=== PATIENT | male | born 1980 | race Asian ===

== ENCOUNTER 2021-10-22 15:10 | Inpatient (IN) | payer OTHER, SELFPAY ==
[2021-10-22 15:32] LABS: #Basophils 0.1 10x3/uL (0.0-0.2); #Monocytes 1.1 10x3/uL (0.0-1.1); #Neutrophils 10.2 10x3/uL (1.5-8.4); %Basophils 0.6 % (0.0-2.0); %Eosinophils 0.2 % (0.0-6.0); %Lymphocytes 11.2 % (18.0-47.0); %Monocytes 8.1 % (0.0-10.0); %Neutrophils 79.4 % (40.0-75.0); Hemoglobin 13.2 g/dL (13.5-17.5); Mean Corpuscular HGB CONC 34.4 g/dL (32.0-36.0); Mean Corpuscular Hemoglobin 35.9 pg (27.0-33.0); Mean Corpuscular Volume 104.3 fl (81.2-95.1); Mean Platelet Volume 10.9 fl (7.4-10.4); Platelet Count 161 10x3/uL (150-450); RBC Distribution Width 11.9 % (11.5-14.5); Red Blood Cell (RBC) Count 3.68 10x6/uL (4.32-5.72); White Blood Cell (WBC) Count 12.9 10x3/uL (3.5-10.5)
[2021-10-22] MEDS ORDERED: Multivitamins, Adult 10 ML, Folic Acid 1 MG in Dextrose 5 %-0.45 % NaCl 1,000 ML IV SCH (16:00)
[2021-10-22 16:04] LABS: Bilirubin Neg (Negative); Blood, Urine 25 (Negative); Clarity Cloudy (Clear); Glucose, Urine (Dipstick) 50 mg/dL (Negative); Ketone, Urine 5 mg/dL (Negative); Leukocyte 25 (Negative); Nitrite Negative (Negative); Protein, Urine (Dipstick) 100 mg/dl (Neg-Trace); Urobilinogen Normal mg/dL (Less than 2)
[2021-10-22 16:07] LABS: ALT (SGPT) 50 U/L (8-55); AST (SGOT) 98 U/L (5-34); Acetaminophen Less than 6.0 mcg/mL (10.0-30.0); Albumin 4.5 g/dL (3.5-5.0); Alcohol Less than 10 mg/dL (Less than 10); Alkaline Phosphatase 83 U/L (40-110); Anion Gap 16 mmol/L (10-20); BUN (Urea Nitrogen) 12 mg/dL (8.9-20.6); Bilirubin, Total 1.2 mg/dL (0.2-1.2); CK (CPK) 616 U/L (30-200); Calc. Creatinine Clearance 0 mL/min (70-130); Calcium 9.4 mg/dL (7.8-10.44); Carbon Dioxide 24 mmol/L (22-29); Chloride 99 mmol/L (98-107); Globulin 3.4 g/dL (2.4-3.5); Glucose 131 mg/dL (70-105); Magnesium 2.2 mg/dL (1.6-2.6); Potassium 4.3 mmol/L (3.5-5.1); Protein, Total 7.9 g/dL (6.0-8.3); Salicylate Less than 8.0 mg/dL (15.0-30.0); Sodium 135 mmol/L (136-145)
[2021-10-22] MEDS ORDERED: Lorazepam 2 MG/ML VIAL ONE (16:08)
[2021-10-22] MEDS ORDERED: Magnesium 2 GM/50 ML BAG (IN WATER) ONE (16:08)
[2021-10-22] MEDS ORDERED: Thiamine HCl 200 MG/2 ML VIAL ONE (16:08)
[2021-10-22 16:11] LABS: Amphetamine Not Detected (NotDetected); Barbiturates Screen Not Detected (NotDetected); Benzodiazepine Screen Not Detected (NotDetected); Cocaine Metabolite Screen Not Detected (NotDetected); Methadone Not Detected (NotDetected); Methamphetamine Not Detected (NotDetected); Opiate Screen Not Detected (NotDetected); Oxycodone Screen Not Detected (NotDetected); Phencyclidine (PCP) Not Detected (NotDetected); THC/Cannabinoid Screen Not Detected (NotDetected); Tricyclic Screen Not Detected (NotDetected)
[2021-10-22 16:25] LABS: Bacteria/HPF Rare-Few HPF (None Seen); Squamous Epithelial 0-3 HPF (0-3)
[2021-10-22] MEDS ORDERED: Lorazepam 2 MG/ML VIAL IM PRN (18:58)
[2021-10-22] MEDS ORDERED: Lorazepam 1 MG TAB PO PRN (18:58)
[2021-10-22] MEDS ORDERED: Ondansetron ODT 4 MG TAB PO PRN (18:58)
[2021-10-22] MEDS ORDERED: Electrolyte Replacement Protocol 1 EACH FS SCH (19:00)
[2021-10-22 19:21] LABS: #Basophils 0.1 10x3/uL (0.0-0.2); #Monocytes 0.7 10x3/uL (0.0-1.1); #Neutrophils 9.1 10x3/uL (1.5-8.4); %Basophils 0.5 % (0.0-2.0); %Eosinophils 0.2 % (0.0-6.0); %Monocytes 6.7 % (0.0-10.0); %Neutrophils 83.2 % (40.0-75.0); Hemoglobin 12.9 g/dL (13.5-17.5); Mean Corpuscular HGB CONC 34.9 g/dL (32.0-36.0); Mean Corpuscular Hemoglobin 36.2 pg (27.0-33.0); Mean Corpuscular Volume 103.9 fl (81.2-95.1); Mean Platelet Volume 9.4 fl (7.4-10.4); Platelet Count 117 10x3/uL (150-450); RBC Distribution Width 11.8 % (11.5-14.5); Red Blood Cell (RBC) Count 3.56 10x6/uL (4.32-5.72); White Blood Cell (WBC) Count 10.9 10x3/uL (3.5-10.5)
[2021-10-22 19:35] LABS: ALT (SGPT) 47 U/L (8-55); AST (SGOT) 87 U/L (5-34); Albumin 4.2 g/dL (3.5-5.0); Alkaline Phosphatase 77 U/L (40-110); Anion Gap 12 mmol/L (10-20); BUN (Urea Nitrogen) 10 mg/dL (8.9-20.6); Bilirubin, Direct 0.5 mg/dL (0.1-0.3); Bilirubin, Total 1.2 mg/dL (0.2-1.2); Calc. Creatinine Clearance 0 mL/min (70-130); Calcium 8.7 mg/dL (7.8-10.44); Carbon Dioxide 23 mmol/L (22-29); Chloride 101 mmol/L (98-107); Globulin 3.3 g/dL (2.4-3.5); Glucose 133 mg/dL (70-105); Magnesium 2.6 mg/dL (1.6-2.6); Phosphorus 2.3 mg/dL (2.3-4.7); Potassium 3.4 mmol/L (3.5-5.1); Protein, Total 7.5 g/dL (6.0-8.3); Sodium 133 mmol/L (136-145)
[2021-10-22 19:54] LABS: Syphilis Antibody Nonreactive (Nonreactive); Syphilis Antibody Index 0.06 S/CO (<1.00 Non-Reactive)
[2021-10-22] MEDS ORDERED: Acetaminophen 325 MG TAB PO PRN (19:58)
[2021-10-22] MEDS ORDERED: Acetaminophen 325 MG TAB ONE (21:19)
[2021-10-22 22:35] VITALS: BMI 22.1
[2021-10-22] MEDS: Lorazepam 1 MG TAB PO SCH (22:59)
[2021-10-22] MEDS ORDERED: Potassium Bicarbonate/Cit Ac 20 MEQ TAB PO SCH (23:15)
[2021-10-22] MEDS: Lactated Ringer's 1,000 ML IV SCH (23:31)
[2021-10-23 01:21] LABS: SARS-CoV-2 NAA Rapid Test Not Detected (NotDetected)
[2021-10-23] MEDS: Lorazepam 1 MG TAB PO SCH ×4 (02:13→19:36)
[2021-10-23 05:07] LABS: Anion Gap 13 mmol/L (10-20); BUN (Urea Nitrogen) 8 mg/dL (8.9-20.6); Calc. Creatinine Clearance 123 mL/min (70-130); Calcium 8.6 mg/dL (7.8-10.44); Carbon Dioxide 24 mmol/L (22-29); Chloride 105 mmol/L (98-107); Glucose 95 mg/dL (70-105); Potassium 3.5 mmol/L (3.5-5.1); Sodium 138 mmol/L (136-145)
[2021-10-23 05:20] LABS: #Basophils 0.1 10x3/uL (0.0-0.2); #Eosinphils 0.1 10x3/uL (0.0-0.5); #Monocytes 0.6 10x3/uL (0.0-1.1); %Basophils 0.6 % (0.0-2.0); %Eosinophils 0.9 % (0.0-6.0); %Lymphocytes 14.1 % (18.0-47.0); %Monocytes 7.6 % (0.0-10.0); %Neutrophils 76.5 % (40.0-75.0); Hemoglobin 12.5 g/dL (13.5-17.5); Mean Corpuscular HGB CONC 34.2 g/dL (32.0-36.0); Mean Corpuscular Hemoglobin 35.8 pg (27.0-33.0); Mean Corpuscular Volume 104.6 fl (81.2-95.1); Mean Platelet Volume 10.6 fl (7.4-10.4); Platelet Count 124 10x3/uL (150-450); RBC Distribution Width 12.1 % (11.5-14.5); Red Blood Cell (RBC) Count 3.49 10x6/uL (4.32-5.72); White Blood Cell (WBC) Count 7.8 10x3/uL (3.5-10.5)
[2021-10-23] MEDS ORDERED: Potassium Chloride 20 MEQ TAB PO SCH (05:30)
[2021-10-23] MEDS: Lactated Ringer's 1,000 ML IV SCH (06:03)
[2021-10-23] MEDS: Enoxaparin Sodium 40 MG/0.4 ML SYRINGE SC SCH (10:10)
[2021-10-23] MEDS: Folic Acid 1 MG TAB PO SCH (10:10)
[2021-10-23] MEDS: Multivit, Therapeutic 1 TAB PO SCH (10:10)
[2021-10-23 12:06] LABS: Potassium 3.8 mmol/L (3.5-5.1)
[2021-10-23] MEDS: Thiamine HCl 200 MG/2 ML VIAL SLOW IVP SCH (16:26)
[2021-10-23] MEDS ORDERED: Lorazepam 1 MG TAB PO PRN (18:58)
[2021-10-24] MEDS: Lorazepam 1 MG TAB PO SCH ×3 (02:55→13:05)
[2021-10-24 05:51] LABS: Anion Gap 14 mmol/L (10-20); BUN (Urea Nitrogen) 5 mg/dL (8.9-20.6); Calc. Creatinine Clearance 142 mL/min (70-130); Carbon Dioxide 22 mmol/L (22-29); Chloride 106 mmol/L (98-107); Glucose 99 mg/dL (70-105); Potassium 3.5 mmol/L (3.5-5.1); Sodium 138 mmol/L (136-145)
[2021-10-24 05:59] LABS: #Eosinphils 0.1 10x3/uL (0.0-0.5); #Monocytes 0.7 10x3/uL (0.0-1.1); %Basophils 0.6 % (0.0-2.0); %Eosinophils 1.8 % (0.0-6.0); %Lymphocytes 13.3 % (18.0-47.0); %Monocytes 10.4 % (0.0-10.0); %Neutrophils 73.6 % (40.0-75.0); Hemoglobin 13.1 g/dL (13.5-17.5); Mean Corpuscular HGB CONC 34.5 g/dL (32.0-36.0); Mean Corpuscular Hemoglobin 36.6 pg (27.0-33.0); Mean Corpuscular Volume 106.1 fl (81.2-95.1); Mean Platelet Volume 9.7 fl (7.4-10.4); RBC Distribution Width 11.9 % (11.5-14.5); Red Blood Cell (RBC) Count 3.58 10x6/uL (4.32-5.72); White Blood Cell (WBC) Count 6.8 10x3/uL (3.5-10.5)
[2021-10-24 06:00] LABS: Platelet Count 138 10x3/uL (150-450)
[2021-10-24 07:16] LABS: Macrocytosis SLIGHT = 6-15 cells (100X) (0-5/hpf)
[2021-10-24 07:17] LABS: Platelet Morphology Comment Appears Decreased
[2021-10-24] MEDS ORDERED: Potassium Chloride 20 MEQ TAB PO SCH (08:00)
[2021-10-24] MEDS ORDERED: Potassium Bicarbonate/Cit Ac 20 MEQ TAB PO SCH (09:00)
[2021-10-24] MEDS: Multivit, Therapeutic 1 TAB PO SCH (09:22)
[2021-10-24] MEDS: Enoxaparin Sodium 40 MG/0.4 ML SYRINGE SC SCH (09:22)
[2021-10-24] MEDS: Folic Acid 1 MG TAB PO SCH (09:22)
[2021-10-24 13:43] LABS: Potassium 4.6 mmol/L (3.5-5.1)
[2021-10-24] MEDS: Thiamine HCl 200 MG/2 ML VIAL SLOW IVP SCH (15:49)
[2021-10-24] MEDS ORDERED: Lorazepam 1 MG TAB PO PRN (18:58)
[2021-10-24] MEDS: Lorazepam 0.5 MG TAB PO SCH (19:39)
[2021-10-25] MEDS: Lorazepam 0.5 MG TAB PO SCH ×2 (01:28→09:07)
[2021-10-25 04:08] LABS: #Basophils 0.1 10x3/uL (0.0-0.2); #Eosinphils 0.2 10x3/uL (0.0-0.5); #Monocytes 0.8 10x3/uL (0.0-1.1); #Neutrophils 4.2 10x3/uL (1.5-8.4); %Basophils 0.8 % (0.0-2.0); %Eosinophils 2.3 % (0.0-6.0); %Lymphocytes 19.9 % (18.0-47.0); %Monocytes 12.8 % (0.0-10.0); %Neutrophils 63.6 % (40.0-75.0); Hemoglobin 13.3 g/dL (13.5-17.5); Mean Corpuscular HGB CONC 34.3 g/dL (32.0-36.0); Mean Corpuscular Hemoglobin 36.3 pg (27.0-33.0); Mean Platelet Volume 9.2 fl (7.4-10.4); Platelet Count 153 10x3/uL (150-450); RBC Distribution Width 11.8 % (11.5-14.5); Red Blood Cell (RBC) Count 3.66 10x6/uL (4.32-5.72); White Blood Cell (WBC) Count 6.6 10x3/uL (3.5-10.5)
[2021-10-25 04:19] LABS: Anion Gap 13 mmol/L (10-20); BUN (Urea Nitrogen) 9 mg/dL (8.9-20.6); Calc. Creatinine Clearance 117 mL/min (70-130); Calcium 9.3 mg/dL (7.8-10.44); Carbon Dioxide 26 mmol/L (22-29); Chloride 103 mmol/L (98-107); Glucose 102 mg/dL (70-105); Sodium 138 mmol/L (136-145)
[2021-10-25 04:40] LABS: RBC Morphology Normal
[2021-10-25] MEDS: Folic Acid 1 MG TAB PO SCH (09:06)
[2021-10-25] MEDS: Enoxaparin Sodium 40 MG/0.4 ML SYRINGE SC SCH (09:06)
[2021-10-25] MEDS: Multivit, Therapeutic 1 TAB PO SCH (09:06)
[2021-10-25] MEDS: Thiamine HCl 200 MG/2 ML VIAL SLOW IVP SCH (16:15)
[2021-10-25] MEDS ORDERED: Lorazepam 0.5 MG TAB PO PRN (18:58)
[2021-10-26 08:36] VITALS: BP 133/84; TEMP 98.1
[2021-10-26] MEDS: Enoxaparin Sodium 40 MG/0.4 ML SYRINGE SC SCH (08:46)
[2021-10-26] MEDS: Multivit, Therapeutic 1 TAB PO SCH (08:46)
[2021-10-26] MEDS: Folic Acid 1 MG TAB PO SCH (08:46)
[2021-10-26] MEDS ORDERED: Thiamine 100 MG TAB PO SCH (16:00)
== END 2021-10-26 10:40 | disposition home or self-care (01) | DRG 897 ==
LOC: CSHERS 15:10 → SUATTDRO 15:10 → CSHTELE 15:11 → UNDOADMIN 15:11 → CSHTELE 17:08
PROVIDERS: ADMIT Student in an Organized Health Care Education/Training Program; ATTEND Hospitalist
DX: F10.239 Alcohol dependence with withdrawal, unspecified (principal); G40.509 Epileptic seizures related to external causes, not intractable, without status epilepticus; D53.9 Nutritional anemia, unspecified; Z20.822 Contact with and (suspected) exposure to COVID-19
CPT/HCPCS: 0240U; 36415; 70450; 71045; 72125; 80048; 80053; 80306; 80307; 81003; 81015; 82248; 82550; 82607; 82746; 83735; 84100; 85025; 86780; 93005; 94760; 96365; 96366; 96375; J1650; J2060; J3411; J3475; J7042; J7120

== ENCOUNTER 2022-05-15 20:29 | Emergency (ER) | payer OTHER ==
[~2022-05-15 20:29] MED LIST: Iopamidol 300 61% 100 ML VIAL FS ONE
[2022-05-15 22:55] LABS: Hemoglobin 14.5 g/dL (13.5-17.5); MDiff Complete? YES; Mean Corpuscular HGB CONC 36.1 g/dL (32.0-36.0); Mean Corpuscular Volume 99.8 fl (81.2-95.1); Mean Platelet Volume 9.7 fl (7.4-10.4); Platelet Count 104 10x3/uL (150-450); RBC Distribution Width 12.7 % (11.5-14.5); Red Blood Cell (RBC) Count 4.03 10x6/uL (4.32-5.72); White Blood Cell (WBC) Count 3.2 10x3/uL (3.5-10.5)
[2022-05-15 23:03] LABS: Acetaminophen Less than 10.0 mcg/mL (10.0-30.0); Alcohol 256 mg/dL (Less than 10); Salicylate Less than 8.0 mg/dL (15.0-30.0)
[2022-05-15 23:04] LABS: ALT (SGPT) 107 U/L (8-55); AST (SGOT) 471 U/L (5-34); Albumin 4.4 g/dL (3.5-5.0); Alkaline Phosphatase 128 U/L (40-110); Anion Gap 19 mmol/L (10-20); BUN (Urea Nitrogen) 8 mg/dL (8.9-20.6); Bilirubin, Total 0.8 mg/dL (0.2-1.2); Calc. Creatinine Clearance 0 mL/min (70-130); Calcium 8.9 mg/dL (7.8-10.44); Carbon Dioxide 24 mmol/L (22-29); Chloride 97 mmol/L (98-107); Globulin 3.7 g/dL (2.4-3.5); Glucose 75 mg/dL (70-105); Lipase 47 U/L (8-78); Potassium 3.8 mmol/L (3.5-5.1); Protein, Total 8.1 g/dL (6.0-8.3); Sodium 136 mmol/L (136-145)
[2022-05-15] MEDS ORDERED: Pantoprazole 40 MG VIAL ONE (23:05)
[2022-05-15] MEDS ORDERED: Fentanyl 100 MCG/2 ML VIAL ONE (23:05)
[2022-05-15] MEDS ORDERED: Ondansetron PF 4 MG/2 ML Vial ONE (23:05)
[2022-05-15 23:17] LABS: Eosinophils 3 % (0-10); Lymphocytes 44 % (21-51); Monocytes 5 % (0-10); Neutrophil 47 % (42-75)
[2022-05-15 23:19] LABS: Platelet Morphology Comment Appears Decreased; RBC Morphology Normal
== END 2022-05-16 01:59 | disposition home or self-care (01) ==
LOC: CSHERS 20:29
DX: F10.239 Alcohol dependence with withdrawal, unspecified (principal); K70.9 Alcoholic liver disease, unspecified; I10 Essential (primary) hypertension; F17.220 Nicotine dependence, chewing tobacco, uncomplicated
CPT/HCPCS: 36415; 74177; 80053; 80307; 83690; 85025; 96361; 96374; 96375; C9113; J2405; J3010; Q9967

== ENCOUNTER 2022-08-08 23:56 | Inpatient (IN) | payer OTHER ==
[2022-08-09] MEDS ORDERED: Midazolam HCl 2 mg/2 ml Vial ONE (00:52)
[2022-08-09] MEDS ORDERED: chlordiazePOXIDE HCl 5 MG CAP ONE (00:54)
[2022-08-09 01:16] LABS: #Basophils 0.1 10x3/uL (0.0-0.2); #Monocytes 0.4 10x3/uL (0.0-1.1); #Neutrophils 3.7 10x3/uL (1.5-8.4); %Basophils 1.6 % (0.0-2.0); %Eosinophils 0.6 % (0.0-6.0); %Lymphocytes 16.7 % (18.0-47.0); %Neutrophils 73.5 % (40.0-75.0); Hemoglobin 13.4 g/dL (13.5-17.5); Mean Corpuscular HGB CONC 36.1 g/dL (32.0-36.0); Mean Corpuscular Hemoglobin 35.7 pg (27.0-33.0); Mean Corpuscular Volume 98.9 fl (81.2-95.1); Mean Platelet Volume 9.3 fl (7.4-10.4); Platelet Count 107 10x3/uL (150-450); RBC Distribution Width 11.9 % (11.5-14.5); Red Blood Cell (RBC) Count 3.75 10x6/uL (4.32-5.72)
[2022-08-09 01:22] LABS: Acetaminophen Less than 10.0 mcg/mL (10.0-30.0); Alcohol Less than 10 mg/dL (Less than 10); Magnesium 1.7 mg/dL (1.6-2.6); Salicylate Less than 8.0 mg/dL (15.0-30.0)
[2022-08-09 01:23] LABS: ALT (SGPT) 55 U/L (8-55); AST (SGOT) 150 U/L (5-34); Albumin 4.2 g/dL (3.5-5.0); Alkaline Phosphatase 87 U/L (40-110); Anion Gap 19 mmol/L (10-20); BUN (Urea Nitrogen) 9 mg/dL (8.9-20.6); Calc. Creatinine Clearance 0 mL/min (70-130); Calcium 8.6 mg/dL (7.8-10.44); Carbon Dioxide 21 mmol/L (22-29); Chloride 98 mmol/L (98-107); Estimated GFR 116; Globulin 2.9 g/dL (2.4-3.5); Glucose 157 mg/dL (70-105); Potassium 3.5 mmol/L (3.5-5.1); Protein, Total 7.1 g/dL (6.0-8.3); Sodium 134 mmol/L (136-145)
[2022-08-09] MEDS ORDERED: Senokot S 8.6-50 MG TAB PO PRN (02:49)
[2022-08-09] MEDS ORDERED: Calcium Carbonate 500 MG ChewTAB PO PRN (02:49)
[2022-08-09] MEDS ORDERED: Acetaminophen 325 MG TAB PO PRN (02:49)
[2022-08-09] MEDS ORDERED: Ondansetron PF 4 MG/2 ML Vial IVP PRN (02:49)
[2022-08-09 03:37] LABS: Platelet Morphology Comment Appears Decreased; RBC Morphology Normal
[2022-08-09 05:21] LABS: Anion Gap 13 mmol/L (10-20); BUN (Urea Nitrogen) 8 mg/dL (8.9-20.6); CK (CPK) 150 U/L (30-200); Calc. Creatinine Clearance 0 mL/min (70-130); Calcium 8.4 mg/dL (7.8-10.44); Carbon Dioxide 25 mmol/L (22-29); Chloride 101 mmol/L (98-107); Estimated GFR 121; Glucose 99 mg/dL (70-105); Lipase 36 U/L (8-78); Magnesium 1.9 mg/dL (1.6-2.6); Phosphorus 3.1 mg/dL (2.3-4.7); Potassium 3.6 mmol/L (3.5-5.1); Sodium 135 mmol/L (136-145)
[2022-08-09 05:46] LABS: #Basophils 0.1 10x3/uL (0.0-0.2); #Monocytes 0.6 10x3/uL (0.0-1.1); #Neutrophils 5.2 10x3/uL (1.5-8.4); %Basophils 1.1 % (0.0-2.0); %Eosinophils 0.3 % (0.0-6.0); %Lymphocytes 14.2 % (18.0-47.0); %Monocytes 8.9 % (0.0-10.0); %Neutrophils 75.1 % (40.0-75.0); Hemoglobin 13.1 g/dL (13.5-17.5); Mean Corpuscular HGB CONC 36.2 g/dL (32.0-36.0); Mean Corpuscular Hemoglobin 35.9 pg (27.0-33.0); Mean Corpuscular Volume 99.2 fl (81.2-95.1); Mean Platelet Volume 9.6 fl (7.4-10.4); Platelet Count 103 10x3/uL (150-450); RBC Distribution Width 11.9 % (11.5-14.5); Red Blood Cell (RBC) Count 3.65 10x6/uL (4.32-5.72)
[2022-08-09] MEDS ORDERED: Thiamine 100 MG TAB ONE (06:31)
[2022-08-09 06:32] LABS: SARS-CoV-2 NAA Rapid Test Not Detected (NotDetected)
[2022-08-09] MEDS ORDERED: Pantoprazole 40 MG VIAL ONE (06:32)
[2022-08-09] MEDS: Pantoprazole 40 MG VIAL IVP SCH (07:05)
[2022-08-09] MEDS: Lactated Ringer's 1,000 ML IV SCH ×3 (07:05→16:00)
[2022-08-09] MEDS: Thiamine 100 MG TAB PO SCH (07:05)
[2022-08-09] MEDS ORDERED: Lorazepam 2 MG/ML VIAL ONE ×3 (07:26→13:32)
[2022-08-09] MEDS ORDERED: Potassium Chloride 20 MEQ TAB PO SCH (09:00)
[2022-08-09] MEDS ORDERED: Magnesium Sulfate/D5W 1 GM/100 ML BAG IVPB SCH (09:00)
[2022-08-09] MEDS ORDERED: Potassium Chloride 20 MEQ TAB ONE (09:19)
[2022-08-09] MEDS ORDERED: chlordiazePOXIDE HCl 25 MG CAP ONE (09:19)
[2022-08-09] MEDS ORDERED: Folic Acid 1 MG TAB ONE (09:20)
[2022-08-09] MEDS: Multivit, Therapeutic 1 TAB PO SCH (09:36)
[2022-08-09] MEDS: Folic Acid 1 MG TAB PO SCH (09:36)
[2022-08-09] MEDS: chlordiazePOXIDE HCl 25 MG CAP PO SCH ×3 (09:36→20:30)
[2022-08-09] MEDS: Lorazepam 2 MG/ML VIAL SLOW IVP PRN (13:35)
[2022-08-09 15:46] VITALS: BMI 23.5
[2022-08-10 05:42] LABS: #Eosinphils 0.1 10x3/uL (0.0-0.5); #Monocytes 0.4 10x3/uL (0.0-1.1); #Neutrophils 2.4 10x3/uL (1.5-8.4); %Eosinophils 1.3 % (0.0-6.0); %Lymphocytes 24.5 % (18.0-47.0); %Monocytes 11.4 % (0.0-10.0); %Neutrophils 61.3 % (40.0-75.0); Mean Corpuscular HGB CONC 35.4 g/dL (32.0-36.0); Mean Corpuscular Hemoglobin 36.1 pg (27.0-33.0); Mean Corpuscular Volume 101.9 fl (81.2-95.1); Mean Platelet Volume 10.2 fl (7.4-10.4); Platelet Count 92 10x3/uL (150-450); RBC Distribution Width 12.2 % (11.5-14.5); White Blood Cell (WBC) Count 3.9 10x3/uL (3.5-10.5)
[2022-08-10 05:50] LABS: ALT (SGPT) 42 U/L (8-55); AST (SGOT) 78 U/L (5-34); Albumin 3.9 g/dL (3.5-5.0); Alkaline Phosphatase 80 U/L (40-110); Anion Gap 12 mmol/L (10-20); BUN (Urea Nitrogen) 4 mg/dL (8.9-20.6); Bilirubin, Total 1.5 mg/dL (0.2-1.2); Calc. Creatinine Clearance 148 mL/min (70-130); Calcium 8.4 mg/dL (7.8-10.44); Carbon Dioxide 23 mmol/L (22-29); Chloride 102 mmol/L (98-107); Estimated GFR 123; Globulin 2.9 g/dL (2.4-3.5); Glucose 92 mg/dL (70-105); Potassium 3.2 mmol/L (3.5-5.1); Protein, Total 6.8 g/dL (6.0-8.3); Sodium 134 mmol/L (136-145)
[2022-08-10] MEDS: Pantoprazole 40 MG VIAL IVP SCH (06:21)
[2022-08-10] MEDS: Thiamine 100 MG TAB PO SCH (06:22)
[2022-08-10] MEDS: Folic Acid 1 MG TAB PO SCH (08:39)
[2022-08-10] MEDS: Multivit, Therapeutic 1 TAB PO SCH (08:39)
[2022-08-10] MEDS: chlordiazePOXIDE HCl 25 MG CAP PO SCH (08:39)
[2022-08-10] MEDS ORDERED: Electrolyte Replacement Protocol 1 EACH FS SCH (09:15)
[2022-08-10] MEDS ORDERED: Magnesium 2 GM/50 ML(in water) 2 GM in Premix Bag 1 BAG IVPB SCH (10:30)
[2022-08-10] MEDS ORDERED: Potassium Chloride 20 MEQ TAB PO SCH (10:30)
[2022-08-10] MEDS: Lorazepam 2 MG/ML VIAL SLOW IVP PRN ×2 (15:53→21:28)
[2022-08-10 17:50] LABS: Potassium 4.3 mmol/L (3.5-5.1)
[2022-08-10] MEDS ORDERED: Metoprolol Tartrate 5 MG/5 ML VIAL IVP PRN (18:39)
[2022-08-11] MEDS: Thiamine 100 MG TAB PO SCH (05:04)
[2022-08-11] MEDS: Lorazepam 2 MG/ML VIAL SLOW IVP PRN ×5 (05:04→22:51)
[2022-08-11 05:27] LABS: ALT (SGPT) 35 U/L (8-55); AST (SGOT) 58 U/L (5-34); Albumin 3.9 g/dL (3.5-5.0); Alkaline Phosphatase 71 U/L (40-110); Anion Gap 11 mmol/L (10-20); BUN (Urea Nitrogen) 6 mg/dL (8.9-20.6); Calc. Creatinine Clearance 137 mL/min (70-130); Calcium 8.6 mg/dL (7.8-10.44); Carbon Dioxide 25 mmol/L (22-29); Chloride 106 mmol/L (98-107); Estimated GFR 120; Globulin 2.9 g/dL (2.4-3.5); Glucose 113 mg/dL (70-105); Potassium 3.7 mmol/L (3.5-5.1); Protein, Total 6.8 g/dL (6.0-8.3); Sodium 138 mmol/L (136-145)
[2022-08-11 05:37] LABS: #Eosinphils 0.1 10x3/uL (0.0-0.5); #Monocytes 0.6 10x3/uL (0.0-1.1); #Neutrophils 3.1 10x3/uL (1.5-8.4); %Basophils 0.8 % (0.0-2.0); %Eosinophils 1.7 % (0.0-6.0); %Lymphocytes 19.3 % (18.0-47.0); %Monocytes 11.7 % (0.0-10.0); %Neutrophils 65.9 % (40.0-75.0); Hemoglobin 12.2 g/dL (13.5-17.5); Mean Corpuscular HGB CONC 34.4 g/dL (32.0-36.0); Mean Corpuscular Hemoglobin 35.6 pg (27.0-33.0); Mean Corpuscular Volume 103.5 fl (81.2-95.1); Mean Platelet Volume 10.1 fl (7.4-10.4); Platelet Count 95 10x3/uL (150-450); Red Blood Cell (RBC) Count 3.43 10x6/uL (4.32-5.72); White Blood Cell (WBC) Count 4.7 10x3/uL (3.5-10.5)
[2022-08-11] MEDS ORDERED: Magnesium 2 GM/50 ML(in water) 2 GM in Premix Bag 1 BAG IVPB SCH (06:00)
[2022-08-11] MEDS: Folic Acid 1 MG TAB PO SCH (08:15)
[2022-08-11] MEDS: Multivit, Therapeutic 1 TAB PO SCH (08:15)
[2022-08-11] MEDS ORDERED: Sterile Water 10 ML VIAL FS PRN (18:15)
[2022-08-11] MEDS ORDERED: Ziprasidone 20 MG VIAL IM SCH (18:15)
[2022-08-12] MEDS: Lorazepam 2 MG/ML VIAL SLOW IVP PRN ×2 (02:39→08:41)
[2022-08-12] MEDS: Thiamine 100 MG TAB PO SCH (05:24)
[2022-08-12 06:38] LABS: Magnesium 1.6 mg/dL (1.6-2.6)
[2022-08-12 06:55] LABS: Bilirubin Neg (Negative); Blood, Urine Negative (Negative); Clarity Clear (Clear); Glucose, Urine (Dipstick) Normal (Negative); Ketone, Urine Negative (Negative); Leukocyte Negative (Negative); Nitrite Negative (Negative); Protein, Urine (Dipstick) 15 mg/dl (Neg-Trace); Specific Gravity, Urine 1.005 (1.002-1.036)
[2022-08-12 06:56] LABS: Urine Culture Reflex No No
[2022-08-12 07:03] LABS: Bacteria/HPF None Seen HPF (None Seen); RBC/HPF 0-3 HPF (0-3); Squamous Epithelial None Seen HPF (0-3); WBC/HPF 0-3 HPF (0-3)
[2022-08-12] MEDS: Folic Acid 1 MG TAB PO SCH (08:41)
[2022-08-12] MEDS: Multivit, Therapeutic 1 TAB PO SCH (08:41)
[2022-08-12] MEDS ORDERED: Magnesium 2 GM/50 ML(in water) 2 GM in Premix Bag 1 BAG IVPB SCH (12:00)
[2022-08-13] MEDS: Lorazepam 2 MG/ML VIAL SLOW IVP PRN (05:32)
[2022-08-13] MEDS: Thiamine 100 MG TAB PO SCH (05:32)
[2022-08-13 06:15] LABS: Magnesium 2.1 mg/dL (1.6-2.6); Potassium 3.8 mmol/L (3.5-5.1)
[2022-08-13] MEDS: Multivit, Therapeutic 1 TAB PO SCH (09:20)
[2022-08-13] MEDS: Folic Acid 1 MG TAB PO SCH (09:20)
[2022-08-13] MEDS ORDERED: Ondansetron ODT 4 MG TAB PO PRN (09:42)
[2022-08-13] MEDS: Lorazepam 1 MG TAB PO PRN (22:02)
[2022-08-13] MEDS: pyridOXINE 50 MG (B6) TAB PO SCH (22:02)
[2022-08-14] MEDS: Lorazepam 1 MG TAB PO PRN ×3 (00:21→20:30)
[2022-08-14] MEDS: Thiamine 100 MG TAB PO SCH (06:52)
[2022-08-14] MEDS: Magnesium Oxide 400 MG TAB PO SCH (08:53)
[2022-08-14] MEDS: Folic Acid 1 MG TAB PO SCH (08:53)
[2022-08-14] MEDS: Multivit, Therapeutic 1 TAB PO SCH (08:53)
[2022-08-14] MEDS: K-Phos Neutral 250 MG TAB PO SCH ×2 (08:53→18:13)
[2022-08-14] MEDS ORDERED: pyridOXINE 50 MG (B6) TAB PO SCH ×2 (09:00)
[2022-08-14] MEDS: pyridOXINE 50 MG (B6) TAB PO SCH (20:26)
[2022-08-15] MEDS: Lorazepam 1 MG TAB PO PRN (00:44)
[2022-08-15 04:43] LABS: #Basophils 0.1 10x3/uL (0.0-0.2); #Eosinphils 0.1 10x3/uL (0.0-0.5); #Monocytes 0.9 10x3/uL (0.0-1.1); #Neutrophils 2.6 10x3/uL (1.5-8.4); %Basophils 2.4 % (0.0-2.0); %Eosinophils 2.5 % (0.0-6.0); %Lymphocytes 24.8 % (18.0-47.0); %Neutrophils 46.6 % (40.0-75.0); Hemoglobin 11.9 g/dL (13.5-17.5); Mean Corpuscular Hemoglobin 35.5 pg (27.0-33.0); Mean Corpuscular Volume 107.8 fl (81.2-95.1); Mean Platelet Volume 8.8 fl (7.4-10.4); Platelet Count 201 10x3/uL (150-450); RBC Distribution Width 12.4 % (11.5-14.5); Red Blood Cell (RBC) Count 3.35 10x6/uL (4.32-5.72); White Blood Cell (WBC) Count 5.5 10x3/uL (3.5-10.5)
[2022-08-15 04:57] LABS: Anion Gap 13 mmol/L (10-20); BUN (Urea Nitrogen) 9 mg/dL (8.9-20.6); Calc. Creatinine Clearance 131 mL/min (70-130); Calcium 9.4 mg/dL (7.8-10.44); Carbon Dioxide 28 mmol/L (22-29); Chloride 106 mmol/L (98-107); Estimated GFR 118; Glucose 108 mg/dL (70-105); Phosphorus 4.5 mg/dL (2.3-4.7); Sodium 143 mmol/L (136-145)
[2022-08-15] MEDS: Thiamine 100 MG TAB PO SCH (05:55)
[2022-08-15] MEDS ORDERED: Magnesium 2 GM/50 ML(in water) 2 GM in Premix Bag 1 BAG IVPB SCH (06:00)
[2022-08-15] MEDS: K-Phos Neutral 250 MG TAB PO SCH (08:45)
[2022-08-15] MEDS: Folic Acid 1 MG TAB PO SCH (09:38)
[2022-08-15] MEDS: Multivit, Therapeutic 1 TAB PO SCH (09:38)
[2022-08-15] MEDS: Magnesium Oxide 400 MG TAB PO SCH (09:38)
[2022-08-15] MEDS ORDERED: Lorazepam 1 MG TAB PO PRN (09:43)
[2022-08-15 16:14] VITALS: BP 138/75; TEMP 98.3
[2022-08-16] MEDS ORDERED: Lorazepam 0.5 MG TAB PO PRN (09:43)
== END 2022-08-15 15:45 | disposition home or self-care (01) | DRG 896 ==
LOC: CSHERS 23:56 → CSHERHOLD 08-09 08:12 → CSHTELE 08-09 15:17
PROVIDERS: ADMIT Student in an Organized Health Care Education/Training Program; ATTEND Internal Medicine
DX: F10.239 Alcohol dependence with withdrawal, unspecified (principal); G93.41 Metabolic encephalopathy; R65.10 Systemic inflammatory response syndrome (SIRS) of non-infectious origin without acute organ dysfunction; E87.1 Hypo-osmolality and hyponatremia; D61.818 Other pancytopenia; R56.9 Unspecified convulsions; D53.9 Nutritional anemia, unspecified; D69.6 Thrombocytopenia, unspecified; R03.0 Elevated blood-pressure reading, without diagnosis of hypertension; I10 Essential (primary) hypertension; E87.6 Hypokalemia; E83.42 Hypomagnesemia; Z20.822 Contact with and (suspected) exposure to COVID-19; K70.10 Alcoholic hepatitis without ascites; Z79.899 Other long term (current) drug therapy
CPT/HCPCS: 36415; 70450; 71045; 72125; 80048; 80053; 80307; 81001; 82550; 82607; 83690; 83735; 84100; 84132; 85025; 87040; 87811; 93005; 94640; 96361; 96374; 96375; C9113; J2060; J2250; J3475; J3486; J7120

== ENCOUNTER 2023-03-30 00:02 | Emergency (ER) | payer OTHER ==
[2023-03-30] MEDS ORDERED: Ondansetron PF 4 MG/2 ML Vial ONE (00:36)
[2023-03-30 00:50] LABS: #Basophils 0.1 10x3/uL (0.0-0.2); #Monocytes 0.9 10x3/uL (0.0-1.1); #Neutrophils 9.6 10x3/uL (1.5-8.4); %Basophils 0.5 % (0.0-2.0); %Lymphocytes 8.1 % (18.0-47.0); %Monocytes 7.5 % (0.0-10.0); %Neutrophils 83.5 % (40.0-75.0); Hemoglobin 13.4 g/dL (13.5-17.5); Mean Corpuscular HGB CONC 34.4 g/dL (32.0-36.0); Mean Corpuscular Hemoglobin 35.4 pg (27.0-33.0); Mean Corpuscular Volume 102.6 fl (81.2-95.1); Mean Platelet Volume 8.9 fl (7.4-10.4); Platelet Count 114 10x3/uL (150-450); RBC Distribution Width 11.2 % (11.5-14.5); Red Blood Cell (RBC) Count 3.79 10x6/uL (4.32-5.72); White Blood Cell (WBC) Count 11.5 10x3/uL (3.5-10.5)
[2023-03-30 01:11] LABS: ALT (SGPT) 25 U/L (8-55); AST (SGOT) 63 U/L (5-34); Albumin 4.6 g/dL (3.5-5.0); Alkaline Phosphatase 70 U/L (40-110); Anion Gap 18 mmol/L (10-20); BUN (Urea Nitrogen) 9 mg/dL (8.9-20.6); Bilirubin, Total 0.8 mg/dL (0.2-1.2); Calc. Creatinine Clearance 0 mL/min (70-130); Calcium 8.8 mg/dL (7.8-10.44); Carbon Dioxide 22 mmol/L (22-29); Chloride 100 mmol/L (98-107); Estimated GFR 116; Globulin 3.1 g/dL (2.4-3.5); Glucose 99 mg/dL (70-105); Potassium 3.5 mmol/L (3.5-5.1); Protein, Total 7.7 g/dL (6.0-8.3); Sodium 136 mmol/L (136-145)
== END 2023-03-30 02:04 | disposition home or self-care (01) ==
LOC: CSHERS 00:02
DX: E86.0 Dehydration (principal); I10 Essential (primary) hypertension; F17.220 Nicotine dependence, chewing tobacco, uncomplicated
CPT/HCPCS: 36415; 70450; 71045; 80053; 84484; 85025; 93005; 96361; 96374; J2405

== ENCOUNTER 2023-06-13 14:24 | Emergency (ER) | payer OTHER ==
[2023-06-13 16:41] LABS: #Eosinphils 0.1 10x3/uL (0.0-0.5); #Monocytes 0.4 10x3/uL (0.0-1.1); #Neutrophils 2.1 10x3/uL (1.5-8.4); %Eosinophils 1.5 % (0.0-6.0); %Monocytes 9.5 % (0.0-10.0); %Neutrophils 52.7 % (40.0-75.0); Mean Corpuscular HGB CONC 34.5 g/dL (32.0-36.0); Mean Corpuscular Hemoglobin 33.3 pg (27.0-33.0); Mean Corpuscular Volume 96.7 fl (81.2-95.1); Mean Platelet Volume 8.9 fl (7.4-10.4); Platelet Count 103 10x3/uL (150-450); RBC Distribution Width 11.8 % (11.5-14.5); White Blood Cell (WBC) Count 3.9 10x3/uL (3.5-10.5)
[2023-06-13 16:51] LABS: ALT (SGPT) 27 U/L (8-55); AST (SGOT) 52 U/L (5-34); Albumin 3.9 g/dL (3.5-5.0); Alkaline Phosphatase 67 U/L (40-110); Anion Gap 15 mmol/L (10-20); BUN (Urea Nitrogen) 14 mg/dL (8.9-20.6); Bilirubin, Total 1.3 mg/dL (0.2-1.2); Calc. Creatinine Clearance 0 mL/min (70-130); Calcium 7.8 mg/dL (7.8-10.44); Carbon Dioxide 22 mmol/L (22-29); Chloride 103 mmol/L (98-107); Estimated GFR 116; Glucose 121 mg/dL (70-105); Lipase 38 U/L (8-78); Potassium 3.9 mmol/L (3.5-5.1); Protein, Total 6.9 g/dL (6.0-8.3); Sodium 136 mmol/L (136-145)
== END 2023-06-13 17:55 | disposition home or self-care (01) ==
LOC: CSHERS 14:24
DX: R07.9 Chest pain, unspecified (principal); R11.10 Vomiting, unspecified; I10 Essential (primary) hypertension; F17.220 Nicotine dependence, chewing tobacco, uncomplicated
CPT/HCPCS: 71045; 80053; 83690; 84484; 85025; 85379; 93005

== ENCOUNTER 2023-07-02 22:35 | Inpatient (IN) | payer OTHER ==
[2023-07-02] MEDS ORDERED: Ondansetron PF 4 MG/2 ML Vial ONE (22:46)
[2023-07-02] MEDS ORDERED: Pantoprazole 40 MG VIAL ONE (22:47)
[2023-07-02] MEDS ORDERED: Octreotide Acetate 1,250 MCG in Sodium Chloride 0.9% 250 ML 250 ML IVPB SCH (23:00)
[2023-07-02] MEDS ORDERED: Pantoprazole 80 MG in Sodium Chloride 0.9% 100 ML IVPB SCH (23:00)
[2023-07-02 23:12] LABS: INR-International Normal Ratio 0.9; PTT 25.7 sec (22.0-33.0); Prothrombin Time 10.2 sec (9.5-12.1)
[2023-07-02 23:13] LABS: #Basophils 0.1 10x3/uL (0.0-0.2); #Eosinphils 0.1 10x3/uL (0.0-0.5); #Monocytes 0.3 10x3/uL (0.0-1.1); #Neutrophils 2.2 10x3/uL (1.5-8.4); %Basophils 1.7 % (0.0-2.0); %Eosinophils 2.4 % (0.0-6.0); %Lymphocytes 51.5 % (18.0-47.0); %Monocytes 5.7 % (0.0-10.0); %Neutrophils 38.5 % (40.0-75.0); Hemoglobin 14.2 g/dL (13.5-17.5); Mean Corpuscular HGB CONC 35.5 g/dL (32.0-36.0); Mean Corpuscular Hemoglobin 33.4 pg (27.0-33.0); Mean Corpuscular Volume 94.1 fl (81.2-95.1); Mean Platelet Volume 9.3 fl (7.4-10.4); Platelet Count 101 10x3/uL (150-450); RBC Distribution Width 17.1 % (11.5-14.5); Red Blood Cell (RBC) Count 4.25 10x6/uL (4.32-5.72); White Blood Cell (WBC) Count 5.8 10x3/uL (3.5-10.5)
[2023-07-02 23:15] LABS: Amphetamine Not Detected (NotDetected); Barbiturates Screen Not Detected (NotDetected); Benzodiazepine Screen Not Detected (NotDetected); Cocaine Metabolite Screen Not Detected (NotDetected); Methadone Not Detected (NotDetected); Methamphetamine Not Detected (NotDetected); Opiate Screen Not Detected (NotDetected); Oxycodone Screen Not Detected (NotDetected); Phencyclidine (PCP) Not Detected (NotDetected); THC/Cannabinoid Screen Not Detected (NotDetected); Tricyclic Screen Not Detected (NotDetected)
[2023-07-02 23:16] LABS: ALT (SGPT) 422 U/L (8-55); AST (SGOT) 940 U/L (5-34); Albumin 4.1 g/dL (3.5-5.0); Alkaline Phosphatase 402 U/L (40-110); Anion Gap 20 mmol/L (10-20); BUN (Urea Nitrogen) 13 mg/dL (8.9-20.6); Bilirubin, Total 1.7 mg/dL (0.2-1.2); Calc. Creatinine Clearance 0 mL/min (70-130); Calcium 8.1 mg/dL (7.8-10.44); Carbon Dioxide 21 mmol/L (22-29); Chloride 101 mmol/L (98-107); Estimated GFR 116; Globulin 3.6 g/dL (2.4-3.5); Glucose 99 mg/dL (70-105); Potassium 4.1 mmol/L (3.5-5.1); Protein, Total 7.7 g/dL (6.0-8.3); Sodium 138 mmol/L (136-145)
[2023-07-02 23:17] LABS: Acetaminophen Less than 10 mcg/mL (10.0-30.0); Alcohol 297.9 mg/dL (Less than 10); Lipase 60 U/L (8-78); Magnesium 2.1 mg/dL (1.6-2.6); Salicylate Less than 8.0 mg/dL (15.0-30.0)
[2023-07-02 23:19] LABS: Bilirubin Neg (Negative); Blood, Urine 25 (Negative); Clarity Clear (Clear); Glucose, Urine (Dipstick) Normal (Negative); Ketone, Urine Negative (Negative); Leukocyte 25 (Negative); Nitrite Negative (Negative); Protein, Urine (Dipstick) 30 mg/dl (Neg-Trace)
[2023-07-02 23:32] LABS: Bacteria/HPF Rare-Few HPF (None Seen); CAUTI Indications for Culture Pelvic or flank pain; RBC/HPF 0-3 HPF (0-3); Squamous Epithelial 0-3 HPF (0-3); WBC/HPF 0-3 HPF (0-3)
[2023-07-02 23:33] LABS: Urine Culture Reflex No No
[2023-07-03] MEDS ORDERED: cefTRIAXone (ROCEPHIN) 1 GM VIAL ONE (00:08)
[2023-07-03] MEDS ORDERED: Ondansetron PF 4 MG/2 ML Vial IVP PRN (00:34)
[2023-07-03] MEDS ORDERED: Lorazepam 2 MG/ML VIAL IM PRN (00:34)
[2023-07-03] MEDS ORDERED: Ondansetron ODT 4 MG TAB PO PRN (00:34)
[2023-07-03] MEDS ORDERED: Lorazepam 1 MG TAB PO PRN (00:34)
[2023-07-03] MEDS ORDERED: Electrolyte Replacement Protocol FS SCH (00:45)
[2023-07-03] MEDS ORDERED: Octreotide Acetate 1,250 MCG in Sodium Chloride 0.9% 250 ML 250 ML IVPB SCH (00:45)
[2023-07-03] MEDS ORDERED: Lorazepam 1 MG TAB PO SCH (01:00)
[2023-07-03 01:08] VITALS: BMI 19.5
[2023-07-03 01:12] LABS: Magnesium 2.1 mg/dL (1.6-2.6); Phosphorus 4.1 mg/dL (2.3-4.7)
[2023-07-03] MEDS ORDERED: Lorazepam 2 MG/ML VIAL SLOW IVP SCH ×2 (01:30→03:30)
[2023-07-03] MEDS: Thiamine HCl 200 MG/2 ML VIAL SLOW IVP SCH (02:02)
[2023-07-03 02:22] LABS: #Basophils 0.1 10x3/uL (0.0-0.2); #Eosinphils 0.1 10x3/uL (0.0-0.5); #Monocytes 0.3 10x3/uL (0.0-1.1); #Neutrophils 2.2 10x3/uL (1.5-8.4); %Basophils 2.2 % (0.0-2.0); %Lymphocytes 35.9 % (18.0-47.0); %Monocytes 6.9 % (0.0-10.0); %Neutrophils 52.8 % (40.0-75.0); Hematocrit 37.2 % (38.8-50.0); Mean Corpuscular HGB CONC 34.9 g/dL (32.0-36.0); Mean Corpuscular Volume 97.4 fl (81.2-95.1); Platelet Count 83 10x3/uL (150-450); RBC Distribution Width 17.4 % (11.5-14.5); Red Blood Cell (RBC) Count 3.82 10x6/uL (4.32-5.72); White Blood Cell (WBC) Count 4.1 10x3/uL (3.5-10.5)
[2023-07-03 02:26] LABS: Lactic Acid 2.9 mmol/L (0.5-2.2)
[2023-07-03 02:31] LABS: ALT (SGPT) 354 U/L (8-55); AST (SGOT) 834 U/L (5-34); Albumin 3.6 g/dL (3.5-5.0); Alkaline Phosphatase 344 U/L (40-110); Anion Gap 20 mmol/L (10-20); BUN (Urea Nitrogen) 10 mg/dL (8.9-20.6); Bilirubin, Total 1.9 mg/dL (0.2-1.2); Calc. Creatinine Clearance 116 mL/min (70-130); Calcium 7.4 mg/dL (7.8-10.44); Carbon Dioxide 18 mmol/L (22-29); Chloride 104 mmol/L (98-107); Estimated GFR 121; Globulin 3.1 g/dL (2.4-3.5); Glucose 69 mg/dL (70-105); Potassium 4.3 mmol/L (3.5-5.1); Protein, Total 6.7 g/dL (6.0-8.3); Sodium 138 mmol/L (136-145)
[2023-07-03 06:09] LABS: Lactic Acid 2.9 mmol/L (0.5-2.2)
[2023-07-03] MEDS: Lorazepam 1 MG TAB PO SCH ×3 (07:46→18:33)
[2023-07-03] MEDS: metroNIDAZOLE 500 MG in Premix Bag 1 BAG IVPB SCH ×2 (07:46→16:41)
[2023-07-03] MEDS ORDERED: Pantoprazole 40 MG VIAL IVP SCH (10:00)
[2023-07-03] MEDS ORDERED: Lactated Ringer's 1,000 ML IV SCH (10:00)
[2023-07-03] MEDS: Multivitamins, Adult 10 ML, Folic Acid 1 MG, Thiamine HCl 100 MG in Dextrose 5 %-0.45 %... IV SCH (10:06)
[2023-07-03 10:39] LABS: Hematocrit 34.1 % (38.8-50.0); Hemoglobin 11.8 g/dL (13.5-17.5); Platelet Count 74 10x3/uL (150-450)
[2023-07-03 10:45] LABS: ALT (SGPT) 291 U/L (8-55); AST (SGOT) 494 U/L (5-34); Albumin 3.4 g/dL (3.5-5.0); Alkaline Phosphatase 342 U/L (40-110); Bilirubin, Direct 1.3 mg/dL (0.1-0.3); Bilirubin, Total 2.2 mg/dL (0.2-1.2); Protein, Total 6.2 g/dL (6.0-8.3)
[2023-07-03] MEDS ORDERED: fentaNYL 50 mcg/mL 1 mL Vial ONE (11:54)
[2023-07-03] MEDS ORDERED: Iopamidol 300 61% 100 ML VIAL FS ONE (15:21)
[2023-07-03] MEDS ORDERED: Tranexamic Acid 1,000 MG/10 ML VIAL SSP SCH (15:30)
[2023-07-03 16:10] LABS: Hematocrit 32.6 % (38.8-50.0); Hemoglobin 11.4 g/dL (13.5-17.5); Platelet Count 68 10x3/uL (150-450)
[2023-07-03] MEDS ORDERED: Lidocaine 1% w/Epinephrine 1:100K 20 ML VIAL ONE (16:34)
[2023-07-03] MEDS: Pantoprazole 40 MG VIAL IVP SCH (20:45)
[2023-07-03 22:31] LABS: Hematocrit 30.7 % (38.8-50.0); Hemoglobin 11.1 g/dL (13.5-17.5); Platelet Count 67 10x3/uL (150-450)
[2023-07-04] MEDS ORDERED: Lorazepam 1 MG TAB PO PRN (00:35)
[2023-07-04] MEDS: Lorazepam 1 MG TAB PO SCH ×4 (00:36→18:51)
[2023-07-04] MEDS: cefTRIAXone\\ROCEPHIN 1 GM in Sodium Chloride 0.9% 100 ML IVPB SCH (00:36)
[2023-07-04] MEDS ORDERED: metroNIDAZOLE 500 MG in Premix Bag 1 BAG IVPB SCH ×2 (01:00→02:00)
[2023-07-04] MEDS: Thiamine HCl 200 MG/2 ML VIAL SLOW IVP SCH (01:59)
[2023-07-04] MEDS: metroNIDAZOLE 500 MG in Premix Bag 1 BAG IVPB SCH ×3 (02:03→18:50)
[2023-07-04 03:53] LABS: ALT (SGPT) 212 U/L (8-55); AST (SGOT) 248 U/L (5-34); Albumin 3.3 g/dL (3.5-5.0); Alkaline Phosphatase 249 U/L (40-110); Anion Gap 14 mmol/L (10-20); BUN (Urea Nitrogen) 9 mg/dL (8.9-20.6); Bilirubin, Total 1.8 mg/dL (0.2-1.2); Calc. Creatinine Clearance 107 mL/min (70-130); Calcium 7.6 mg/dL (7.8-10.44); Carbon Dioxide 23 mmol/L (22-29); Chloride 98 mmol/L (98-107); Estimated GFR 118; Globulin 2.7 g/dL (2.4-3.5); Glucose 165 mg/dL (70-105); Potassium 3.7 mmol/L (3.5-5.1); Sodium 131 mmol/L (136-145)
[2023-07-04 03:56] LABS: Hematocrit 30.8 % (38.8-50.0); Hemoglobin 11.1 g/dL (13.5-17.5); Platelet Count 71 10x3/uL (150-450)
[2023-07-04] MEDS: Folic Acid 1 MG TAB PO SCH (08:37)
[2023-07-04] MEDS: Multivit, Therapeutic 1 TAB PO SCH (08:37)
[2023-07-04] MEDS: Pantoprazole 40 MG VIAL IVP SCH ×2 (08:38→21:53)
[2023-07-04] MEDS: Multivitamins, Adult 10 ML, Folic Acid 1 MG, Thiamine HCl 100 MG in Dextrose 5 %-0.45 %... IV SCH (08:49)
[2023-07-05] MEDS ORDERED: Lorazepam 1 MG TAB PO PRN (00:35)
[2023-07-05] MEDS: Lorazepam 1 MG TAB PO SCH (02:04)
[2023-07-05] MEDS: Thiamine HCl 200 MG/2 ML VIAL SLOW IVP SCH (02:04)
[2023-07-05] MEDS: cefTRIAXone\\ROCEPHIN 1 GM in Sodium Chloride 0.9% 100 ML IVPB SCH (02:05)
[2023-07-05] MEDS: metroNIDAZOLE 500 MG in Premix Bag 1 BAG IVPB SCH ×2 (02:05→10:28)
[2023-07-05] MEDS: Lorazepam 0.5 MG TAB PO SCH ×3 (02:19→13:28)
[2023-07-05 04:15] LABS: ALT (SGPT) 149 U/L (8-55); AST (SGOT) 118 U/L (5-34); Albumin 3.2 g/dL (3.5-5.0); Alkaline Phosphatase 230 U/L (40-110); Anion Gap 13 mmol/L (10-20); BUN (Urea Nitrogen) Less than 4 mg/dL (8.9-20.6); Bilirubin, Total 1.4 mg/dL (0.2-1.2); Calc. Creatinine Clearance 126 mL/min (70-130); Calcium 7.9 mg/dL (7.8-10.44); Carbon Dioxide 23 mmol/L (22-29); Chloride 101 mmol/L (98-107); Estimated GFR 124; Globulin 2.6 g/dL (2.4-3.5); Glucose 122 mg/dL (70-105); Potassium 3.2 mmol/L (3.5-5.1); Protein, Total 5.8 g/dL (6.0-8.3); Sodium 134 mmol/L (136-145)
[2023-07-05] MEDS ORDERED: Potassium Chloride 20 MEQ TAB PO SCH ×2 (08:00→08:45)
[2023-07-05] MEDS: Pantoprazole 40 MG VIAL IVP SCH (08:33)
[2023-07-05] MEDS: Multivit, Therapeutic 1 TAB PO SCH (08:33)
[2023-07-05] MEDS: Folic Acid 1 MG TAB PO SCH (08:33)
[2023-07-05] MEDS: Multivitamins, Adult 10 ML, Folic Acid 1 MG, Thiamine HCl 100 MG in Dextrose 5 %-0.45 %... IV SCH (11:28)
[2023-07-05 12:17] VITALS: BP 132/92; TEMP 98.4
[2023-07-06] MEDS ORDERED: Lorazepam 0.5 MG TAB PO PRN (00:35)
[2023-07-06] MEDS ORDERED: Thiamine 100 MG TAB PO SCH (09:00)
== END 2023-07-05 13:15 | disposition home or self-care (01) | DRG 158 ==
LOC: CSHERS 22:35 → CSHICU 07-03 00:46 → CSHTELE 07-04 16:32
PROVIDERS: ADMIT Internal Medicine; ATTEND Internal Medicine
PROC: 0DJ08ZZ Inspection of Upper Intestinal Tract, Via Natural or Artificial Opening Endoscopic (ICD-10-PCS; principal; 2023-07-03)
DX: K13.79 Other lesions of oral mucosa (principal); D62 Acute posthemorrhagic anemia; D69.6 Thrombocytopenia, unspecified; K05.6 Periodontal disease, unspecified; I10 Essential (primary) hypertension; F17.220 Nicotine dependence, chewing tobacco, uncomplicated; F10.129 Alcohol abuse with intoxication, unspecified; K70.10 Alcoholic hepatitis without ascites; Z79.899 Other long term (current) drug therapy
CPT/HCPCS: 36415; 70450; 70488; 70551; 71045; 74176; 76705; 80053; 80306; 80307; 81001; 82248; 83605; 83690; 83735; 84100; 84145; 84484; 85014; 85018; 85025; 85049; 85610; 85730; 86850; 86900; 86901; 93005; 94760; 94762; 96365; 96366; 96368; 96375; C9113; J0696; J2060; J2405; J3010; J3411; J3490; J7042; J7120; Q9967

== ENCOUNTER 2023-11-27 19:18 | Inpatient (IN) | payer OTHER ==
[2023-11-27] MEDS ORDERED: Thiamine HCl 200 MG/2 ML VIAL ONE (20:21)
[2023-11-27] MEDS ORDERED: Pantoprazole 40 MG VIAL ONE (20:22)
[2023-11-27 20:32] LABS: #Basophils 0.1 10x3/uL (0.0-0.2); #Monocytes 0.4 10x3/uL (0.0-1.1); #Neutrophils 3.7 10x3/uL (1.5-8.4); %Basophils 1.3 % (0.0-2.0); %Eosinophils 0.2 % (0.0-6.0); %Lymphocytes 19.7 % (18.0-47.0); %Monocytes 7.7 % (0.0-10.0); %Neutrophils 70.2 % (40.0-75.0); Hematocrit 32.3 % (38.8-50.0); Hemoglobin 11.8 g/dL (13.5-17.5); Mean Corpuscular HGB CONC 36.5 g/dL (32.0-36.0); Mean Corpuscular Hemoglobin 35.8 pg (27.0-33.0); Mean Corpuscular Volume 97.9 fl (81.2-95.1); Mean Platelet Volume 12.2 fl (7.4-10.4); Platelet Count 69 10x3/uL (150-450); RBC Distribution Width 17.2 % (11.5-14.5); White Blood Cell (WBC) Count 5.3 10x3/uL (3.5-10.5)
[2023-11-27 20:38] LABS: INR-International Normal Ratio 1.3; PTT 35.9 sec (22.0-33.0); Prothrombin Time 14.2 sec (9.5-12.1)
[2023-11-27 20:42] LABS: Acetaminophen 15 mcg/mL (10.0-30.0); Alcohol Less than 10.0 mg/dL (Less than 10); Anion Gap 11 mmol/L (10-20); BUN (Urea Nitrogen) 5 mg/dL (8.9-20.6); Calc. Creatinine Clearance 0 mL/min (70-130); Carbon Dioxide 26 mmol/L (22-29); Chloride 98 mmol/L (98-107); Estimated GFR 121; Glucose 133 mg/dL (70-105); Potassium 3.6 mmol/L (3.5-5.1); Salicylate Less than 8.0 mg/dL (15.0-30.0); Sodium 131 mmol/L (136-145)
[2023-11-27 20:44] LABS: ALT (SGPT) 63 U/L (8-55); AST (SGOT) 119 U/L (5-34); Albumin 2.2 g/dL (3.5-5.0); Alkaline Phosphatase 377 U/L (40-110); Lipase 12 U/L (8-78); Magnesium 1.5 mg/dL (1.6-2.6); Protein, Total 4.8 g/dL (6.0-8.3)
[2023-11-27 20:50] LABS: Bilirubin, Direct Greater than 10.0 mg/dL (0.1-0.3)
[2023-11-27 20:51] LABS: Calcium 6.7 mg/dL (7.8-10.44)
[2023-11-27] MEDS ORDERED: CALCIUM GLUC 1 GM/NS 50 ML 1 GM in Premix 1 BAG IVPB SCH (21:15)
[2023-11-27] MEDS ORDERED: Magnesium 2 GM/50 ML BAG (IN WATER) ONE (21:51)
[2023-11-28] MEDS ORDERED: Loperamide HCl 2 MG CAP PO PRN ×2 (00:31)
[2023-11-28] MEDS ORDERED: Bisacodyl 5 MG TAB PO PRN (00:31)
[2023-11-28] MEDS ORDERED: Senokot S 8.6-50 MG TAB PO PRN (00:31)
[2023-11-28] MEDS ORDERED: Lorazepam 1 MG TAB PO PRN (00:33)
[2023-11-28] MEDS ORDERED: Lorazepam 2 MG/ML VIAL IM PRN (00:33)
[2023-11-28] MEDS ORDERED: Ondansetron ODT 4 MG TAB PO PRN (00:33)
[2023-11-28] MEDS ORDERED: Electrolyte Replacement Protocol 1 EACH FS PRN (00:45)
[2023-11-28] MEDS ORDERED: Electrolyte Replacement Protocol 1 EACH FS SCH (00:45)
[2023-11-28] MEDS ORDERED: Lorazepam 1 MG TAB ONE ×2 (01:01→06:23)
[2023-11-28] MEDS ORDERED: Thiamine HCl 200 MG/2 ML VIAL ONE (01:02)
[2023-11-28] MEDS: Lorazepam 1 MG TAB PO SCH ×4 (01:13→18:24)
[2023-11-28] MEDS: Thiamine HCl 200 MG/2 ML VIAL SLOW IVP SCH (01:13)
[2023-11-28 01:30] LABS: Amphetamine Not Detected (NotDetected); Barbiturates Screen Not Detected (NotDetected); Benzodiazepine Screen Not Detected (NotDetected); Cocaine Metabolite Screen Not Detected (NotDetected); Methadone Not Detected (NotDetected); Methamphetamine Not Detected (NotDetected); Opiate Screen Not Detected (NotDetected); Oxycodone Screen Not Detected (NotDetected); Phencyclidine (PCP) Not Detected (NotDetected); THC/Cannabinoid Screen Not Detected (NotDetected); Tricyclic Screen Not Detected (NotDetected)
[2023-11-28 01:49] LABS: Magnesium 2.1 mg/dL (1.6-2.6); Phosphorus 2.1 mg/dL (2.3-4.7)
[2023-11-28 04:22] LABS: INR-International Normal Ratio 1.3; Prothrombin Time 13.7 sec (9.5-12.1)
[2023-11-28 04:27] LABS: ALT (SGPT) 56 U/L (8-55); AST (SGOT) 108 U/L (5-34); Alkaline Phosphatase 348 U/L (40-110); Anion Gap 12 mmol/L (10-20); BUN (Urea Nitrogen) 4 mg/dL (8.9-20.6); Calc. Creatinine Clearance 0 mL/min (70-130); Carbon Dioxide 21 mmol/L (22-29); Chloride 101 mmol/L (98-107); Estimated GFR 121; Globulin 2.4 g/dL (2.4-3.5); Glucose 143 mg/dL (70-105); Potassium 3.5 mmol/L (3.5-5.1); Protein, Total 4.4 g/dL (6.0-8.3); Sodium 130 mmol/L (136-145)
[2023-11-28 04:29] LABS: Bilirubin, Total 13.9 mg/dL (0.2-1.2)
[2023-11-28 04:32] LABS: Calcium 6.7 mg/dL (7.8-10.44)
[2023-11-28 04:41] LABS: Hemoglobin 11.1 g/dL (13.5-17.5); Mean Corpuscular HGB CONC 35.8 g/dL (32.0-36.0); Mean Corpuscular Hemoglobin 35.5 pg (27.0-33.0); Platelet Count 63 10x3/uL (150-450); RBC Distribution Width 17.7 % (11.5-14.5); Red Blood Cell (RBC) Count 3.13 10x6/uL (4.32-5.72); White Blood Cell (WBC) Count 4.6 10x3/uL (3.5-10.5)
[2023-11-28 04:42] LABS: #Basophils 0.1 10x3/uL (0.0-0.2); #Monocytes 0.4 10x3/uL (0.0-1.1); #Neutrophils 3.3 10x3/uL (1.5-8.4); %Basophils 1.9 % (0.0-2.0); %Eosinophils 0.4 % (0.0-6.0); %Lymphocytes 16.8 % (18.0-47.0); %Monocytes 9.2 % (0.0-10.0); %Neutrophils 70.8 % (40.0-75.0)
[2023-11-28 07:11] LABS: Anisocytosis MARKED = >30 cells (100X) (0-5/hpf); Hypochromia MARKED = >30 cells (100X) (0-5/hpf); Macrocytosis MARKED = >30 cells (100X) (0-5/hpf); Microcytosis MODERATE=15-30 cells (100X) (0-5/hpf); Poikilocytosis MODERATE=16-30 cells (100X) (0-5/hpf)
[2023-11-28 07:12] LABS: Platelet Adequacy Comment Significant decrease; Target Cells MODERATE= 6-15 cells (100X) (0-1/hpf)
[2023-11-28] MEDS ORDERED: Potassium Chloride 20 MEQ TAB PO SCH (08:00)
[2023-11-28 08:27] VITALS: BMI 19.3
[2023-11-28] MEDS ORDERED: Enoxaparin 40 MG (0.4 mL) SYRINGE SC SCH (09:00)
[2023-11-28] MEDS ORDERED: Famotidine/PF 20 mg/2ml Vial SLOW IVP SCH (09:00)
[2023-11-28] MEDS ORDERED: Famotidine 20 MG TAB PO SCH (09:00)
[2023-11-28] MEDS ORDERED: Potassium Phosphate 30 MMOL in Sodium Chloride 0.9% 500 ML IVPB SCH (10:00)
[2023-11-28] MEDS: Multivit, Therapeutic 1 TAB PO SCH (11:38)
[2023-11-28] MEDS: Folic Acid 1 MG TAB PO SCH (11:38)
[2023-11-28] MEDS: pyridOXINE 50 MG (B6) TAB PO SCH (11:39)
[2023-11-28] MEDS: Lactated Ringer's 1,000 ML IV SCH (16:10)
[2023-11-28] MEDS: Cholecalciferol 1,000 UNITS (25 MCG) TAB PO SCH (20:44)
[2023-11-28] MEDS: Cyanocobalamin (Vitamin B-12) 1,000 MCG TAB PO SCH (20:44)
[2023-11-29] MEDS: Lorazepam 1 MG TAB PO SCH ×4 (01:15→18:13)
[2023-11-29] MEDS: Thiamine HCl 200 MG/2 ML VIAL SLOW IVP SCH (01:17)
[2023-11-29] MEDS: Lactated Ringer's 1,000 ML IV SCH ×2 (06:33→17:17)
[2023-11-29 07:43] LABS: #Basophils 0.1 10x3/uL (0.0-0.2); #Monocytes 0.5 10x3/uL (0.0-1.1); #Neutrophils 2.9 10x3/uL (1.5-8.4); %Basophils 1.9 % (0.0-2.0); %Eosinophils 0.2 % (0.0-6.0); %Lymphocytes 21.9 % (18.0-47.0); %Monocytes 11.3 % (0.0-10.0); %Neutrophils 62.8 % (40.0-75.0); Hemoglobin 10.9 g/dL (13.5-17.5); Mean Corpuscular HGB CONC 35.2 g/dL (32.0-36.0); Mean Corpuscular Hemoglobin 35.6 pg (27.0-33.0); Mean Corpuscular Volume 101.3 fl (81.2-95.1); Platelet Count 85 10x3/uL (150-450); RBC Distribution Width 18.3 % (11.5-14.5); Red Blood Cell (RBC) Count 3.06 10x6/uL (4.32-5.72); White Blood Cell (WBC) Count 4.6 10x3/uL (3.5-10.5)
[2023-11-29 08:12] LABS: INR-International Normal Ratio 1.2; PTT 27.6 sec (22.0-33.0); Prothrombin Time 12.5 sec (9.5-12.1)
[2023-11-29 08:15] LABS: ALT (SGPT) 51 U/L (8-55); AST (SGOT) 87 U/L (5-34); Albumin 2.2 g/dL (3.5-5.0); Alkaline Phosphatase 324 U/L (40-110); Anion Gap 10 mmol/L (10-20); BUN (Urea Nitrogen) 4 mg/dL (8.9-20.6); Bilirubin, Total 18.6 mg/dL (0.2-1.2); Calc. Creatinine Clearance 110 mL/min (70-130); Calcium 7.3 mg/dL (7.8-10.44); Carbon Dioxide 27 mmol/L (22-29); Chloride 99 mmol/L (98-107); Estimated GFR 120; Globulin 2.7 g/dL (2.4-3.5); Glucose 115 mg/dL (70-105); Magnesium 1.9 mg/dL (1.6-2.6); Phosphorus 1.8 mg/dL (2.3-4.7); Potassium 3.7 mmol/L (3.5-5.1); Protein, Total 4.9 g/dL (6.0-8.3); Sodium 132 mmol/L (136-145)
[2023-11-29] MEDS ORDERED: Magnesium 2 GM/50 ML(in water) 2 GM in Premix 1 BAG IVPB SCH (09:00)
[2023-11-29] MEDS: Multivit, Therapeutic 1 TAB PO SCH (09:24)
[2023-11-29] MEDS: Folic Acid 1 MG TAB PO SCH (09:24)
[2023-11-29] MEDS: pyridOXINE 50 MG (B6) TAB PO SCH (09:24)
[2023-11-29] MEDS: Lorazepam 1 MG TAB PO PRN ×2 (17:17→23:43)
[2023-11-29] MEDS: Multivitamins, Adult 10 ML, Folic Acid 1 MG, Thiamine HCl 100 MG in Dextrose 5 %-0.45 %... IV SCH (20:41)
[2023-11-29] MEDS: Cholecalciferol 1,000 UNITS (25 MCG) TAB PO SCH (20:42)
[2023-11-29] MEDS: Cyanocobalamin (Vitamin B-12) 1,000 MCG TAB PO SCH (20:42)
[2023-11-30] MEDS ORDERED: Lorazepam 1 MG TAB PO PRN (00:33)
[2023-11-30] MEDS: Lorazepam 0.5 MG TAB PO SCH ×4 (00:45→17:46)
[2023-11-30 06:13] LABS: INR-International Normal Ratio 1.1; PTT 27.2 sec (22.0-33.0); Prothrombin Time 11.6 sec (9.5-12.1)
[2023-11-30 06:35] LABS: ALT (SGPT) 45 U/L (8-55); AST (SGOT) 85 U/L (5-34); Albumin 2.1 g/dL (3.5-5.0); Alkaline Phosphatase 272 U/L (40-110); Anion Gap 11 mmol/L (10-20); BUN (Urea Nitrogen) 7 mg/dL (8.9-20.6); Bilirubin, Total 15.7 mg/dL (0.2-1.2); Calc. Creatinine Clearance 98 mL/min (70-130); Calcium 7.4 mg/dL (7.8-10.44); Carbon Dioxide 23 mmol/L (22-29); Chloride 103 mmol/L (98-107); Estimated GFR 116; Globulin 2.7 g/dL (2.4-3.5); Glucose 96 mg/dL (70-105); Magnesium 2.1 mg/dL (1.6-2.6); Phosphorus 2.6 mg/dL (2.3-4.7); Potassium 4.2 mmol/L (3.5-5.1); Protein, Total 4.8 g/dL (6.0-8.3); Sodium 133 mmol/L (136-145)
[2023-11-30 07:26] LABS: Hematocrit 29.4 % (38.8-50.0); Hemoglobin 10.3 g/dL (13.5-17.5); Mean Corpuscular Hemoglobin 35.9 pg (27.0-33.0); Mean Corpuscular Volume 102.4 fl (81.2-95.1); Mean Platelet Volume 11.8 fl (7.4-10.4); Platelet Count 94 10x3/uL (150-450); Red Blood Cell (RBC) Count 2.87 10x6/uL (4.32-5.72); White Blood Cell (WBC) Count 4.3 10x3/uL (3.5-10.5)
[2023-11-30 07:32] LABS: #Basophils 0.1 10x3/uL (0.0-0.2); #Monocytes 0.5 10x3/uL (0.0-1.1); #Neutrophils 2.4 10x3/uL (1.5-8.4); %Basophils 2.4 % (0.0-2.0); %Eosinophils 0.2 % (0.0-6.0); %Lymphocytes 24.6 % (18.0-47.0); %Monocytes 11.8 % (0.0-10.0); %Neutrophils 57.4 % (40.0-75.0)
[2023-11-30] MEDS: K-Phos Neutral 250 MG TAB PO SCH ×3 (08:43→17:46)
[2023-11-30] MEDS: pyridOXINE 50 MG (B6) TAB PO SCH (08:43)
[2023-11-30] MEDS ORDERED: cloNIDine 0.1mg/24 Hour PATCH TD SCH (13:00)
[2023-11-30] MEDS: Multivitamins, Adult 10 ML, Folic Acid 1 MG, Thiamine HCl 100 MG in Dextrose 5 %-0.45 %... IV SCH (20:49)
[2023-11-30] MEDS: Cholecalciferol 1,000 UNITS (25 MCG) TAB PO SCH (20:49)
[2023-11-30] MEDS: Cyanocobalamin (Vitamin B-12) 1,000 MCG TAB PO SCH (20:49)
[2023-12-01] MEDS ORDERED: Lorazepam 0.5 MG TAB PO PRN (00:33)
[2023-12-01 04:23] LABS: ALT (SGPT) 41 U/L (8-55); AST (SGOT) 70 U/L (5-34); Albumin 2.3 g/dL (3.5-5.0); Alkaline Phosphatase 253 U/L (40-110); Anion Gap 13 mmol/L (10-20); BUN (Urea Nitrogen) 7 mg/dL (8.9-20.6); Bilirubin, Total 16.8 mg/dL (0.2-1.2); Calc. Creatinine Clearance 112 mL/min (70-130); Calcium 7.6 mg/dL (7.8-10.44); Carbon Dioxide 23 mmol/L (22-29); Chloride 102 mmol/L (98-107); Estimated GFR 120; Globulin 2.9 g/dL (2.4-3.5); Glucose 149 mg/dL (70-105); Phosphorus 2.1 mg/dL (2.3-4.7); Potassium 3.6 mmol/L (3.5-5.1); Protein, Total 5.2 g/dL (6.0-8.3); Sodium 134 mmol/L (136-145)
[2023-12-01 04:25] LABS: PTT 25.6 sec (22.0-33.0); Prothrombin Time 10.8 sec (9.5-12.1)
[2023-12-01 04:42] LABS: Hematocrit 30.2 % (38.8-50.0); Hemoglobin 10.4 g/dL (13.5-17.5); Mean Corpuscular HGB CONC 34.4 g/dL (32.0-36.0); Mean Corpuscular Volume 104.5 fl (81.2-95.1); Platelet Count 133 10x3/uL (150-450); RBC Distribution Width 19.2 % (11.5-14.5); Red Blood Cell (RBC) Count 2.89 10x6/uL (4.32-5.72)
[2023-12-01] MEDS: Thiamine 100 MG TAB PO SCH (05:14)
[2023-12-01 05:19] LABS: MDiff Complete? YES
[2023-12-01 05:47] LABS: Band 1 % (5-11); Eosinophils 1 % (0-10); Lymphocytes 31 % (21-51); Monocytes 10 % (0-10); Myelocyte 2 % (0-0); Neutrophil 51 % (42-75); Promyelocytes 2 % (0-0)
[2023-12-01 05:48] LABS: Anisocytosis MODERATE=16-30 cells (100X) (0-5/hpf); Hypochromia SLIGHT = 6-15 cells (100X) (0-5/hpf)
[2023-12-01 05:49] LABS: Macrocytosis MODERATE=16-30 cells (100X) (0-5/hpf); Microcytosis SLIGHT = 6-15 cells (100X) (0-5/hpf); Polychromasia SLIGHT = 2-3 cells (100X) (0-2/hpf); Target Cells SLIGHT = 2-5 cells (100X) (0-1/hpf)
[2023-12-01 05:50] LABS: Platelet Adequacy Comment Appears Adequate; Stomatocytes SLIGHT = 2-5 cells (100X) (0-1/hpf)
[2023-12-01] MEDS: pyridOXINE 50 MG (B6) TAB PO SCH (08:13)
[2023-12-01] MEDS ORDERED: Enoxaparin 40 MG (0.4 mL) SYRINGE SC SCH (21:00)
[2023-12-01] MEDS: Cholecalciferol 1,000 UNITS (25 MCG) TAB PO SCH (21:31)
[2023-12-01] MEDS: Multivitamins, Adult 10 ML, Folic Acid 1 MG, Thiamine HCl 100 MG in Dextrose 5 %-0.45 %... IV SCH (21:31)
[2023-12-01] MEDS: Cyanocobalamin (Vitamin B-12) 1,000 MCG TAB PO SCH (21:31)
[2023-12-02] MEDS: Thiamine 100 MG TAB PO SCH (03:11)
[2023-12-02] MEDS: pyridOXINE 50 MG (B6) TAB PO SCH (09:07)
[2023-12-02 10:55] LABS: ALT (SGPT) 33 U/L (8-55); AST (SGOT) 50 U/L (5-34); Albumin 2.4 g/dL (3.5-5.0); Alkaline Phosphatase 205 U/L (40-110); Anion Gap 10 mmol/L (10-20); BUN (Urea Nitrogen) 6 mg/dL (8.9-20.6); Bilirubin, Total 13.1 mg/dL (0.2-1.2); Calc. Creatinine Clearance 119 mL/min (70-130); Calcium 7.5 mg/dL (7.8-10.44); Carbon Dioxide 23 mmol/L (22-29); Chloride 101 mmol/L (98-107); Estimated GFR 123; Globulin 2.8 g/dL (2.4-3.5); Glucose 117 mg/dL (70-105); Potassium 3.3 mmol/L (3.5-5.1); Protein, Total 5.2 g/dL (6.0-8.3); Sodium 131 mmol/L (136-145)
[2023-12-02] MEDS ORDERED: K-Phos Neutral 250 MG TAB PO SCH (12:00)
[2023-12-02 12:26] VITALS: BP 112/77; TEMP 99.4
[2023-12-02] MEDS ORDERED: Potassium Chloride 20 MEQ TAB PO SCH (14:15)
[2023-12-02] MEDS ORDERED: Enoxaparin 30 MG (0.3 mL) SYRINGE SC SCH (21:00)
== END 2023-12-02 17:18 | disposition home or self-care (01) | DRG 433 ==
LOC: CSHERS 19:18 → CSHERHOLD 11-28 00:50 → CSHTELE 11-28 09:28
PROVIDERS: ADMIT Family Medicine; ATTEND Internal Medicine
DX: K70.10 Alcoholic hepatitis without ascites (principal); D68.9 Coagulation defect, unspecified; D69.6 Thrombocytopenia, unspecified; E83.51 Hypocalcemia; I10 Essential (primary) hypertension; R56.9 Unspecified convulsions; F17.220 Nicotine dependence, chewing tobacco, uncomplicated; E88.09 Other disorders of plasma-protein metabolism, not elsewhere classified; E87.6 Hypokalemia; R53.1 Weakness; Z79.899 Other long term (current) drug therapy; Z71.41 Alcohol abuse counseling and surveillance of alcoholic
CPT/HCPCS: 36415; 74177; 76700; 80048; 80053; 80076; 80306; 80307; 82247; 82248; 83690; 83735; 84100; 85025; 85610; 85730; 93005; 96365; 96366; 96375; C9113; J0613; J1650; J3411; J3475; J7030; J7042; J7120; Q9967; S0028